=== PATIENT | male | born 1965 | race African-American/Black ===

== ENCOUNTER 2024-02-29 16:19 | Emergency (ER) | payer SELFPAY ==
[2024-02-29] MEDS: METOCLOPRAMIDE HCL INJ 10 MG/2 ML VIAL IM (19:33)
[2024-02-29 19:38] VITALS: BP 128/86; PULSE 67; TEMP 36.8; O2SAT 100
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
== END 2024-02-29 20:17 | disposition home or self-care (01) ==
PROVIDERS: Emergency Provider Emergency Medicine
DX: G44.309 Post-traumatic headache, unspecified, not intractable (principal); F07.81 Postconcussional syndrome
CPT/HCPCS: 96372; 99283; J2765